=== PATIENT | male | born 1945 | race Asian ===

== ENCOUNTER → 2025-07-08 07:44 | Outpatient (REF) | payer MEDICARE, SELFPAY | LOC: HWRCS 07:44 | PROVIDERS: ATTENDING PHYSICIAN Internal Medicine Cardiovascular Disease | DX: R06.09 Other forms of dyspnea (principal); I25.10 Atherosclerotic heart disease of native coronary artery without angina pectoris; I73.9 Peripheral vascular disease, unspecified; E78.2 Mixed hyperlipidemia; I10 Essential (primary) hypertension | CPT/HCPCS: 78452; 93017; A9500; J2785 ==